=== PATIENT | male | born 1970 | race Caucasian/White ===

== ENCOUNTER → 2024-02-24 | Outpatient (CLI) | payer MEDICARE, OTHER, SELFPAY ==
--- NOTE | 2024-02-24 13:42 | DI.ECHO.S_ITS ---
[facility] : : [address] : : [place] : : [id number] : : Phone: [phone] Echocardiogram Report + + :Name: OG DUMONT Study Date: 02/24/2024 Height: 75 in : :Hospital ReadingLocation: Weight: 260 lb : : Gender: Male BSA: 2.5 m2 : :: 1970 Age: 53 yrs BP: 129/97 mmHg: :Reason For Study: PALPITATION : :Ordering Physician: RAMAN, : :POLLY Dumont Performed By: Karen Moore : :Referring: POLLY ALVAREZ : + + Interpretation Summary The ejection fraction is estimated to be 60-65%. Diastolic parameters suggest probable normal left ventricular diastolic function and normal filling pressures. The right ventricle is normal in size and function. No significant valvular abnormalities. Pulmonary artery pressures cannot be estimated because of the lack of a measurable TR jet velocity but the IVC suggests a CVP of around 3 mmHg. The ascending aorta is moderately enlarged, 4.7 cm. Procedure: A two-dimensional transthoracic echocardiogram with color flow and Doppler was performed. The study quality was technically adequate. There is no prior echocardiogram noted for this patient. The patient was in sinus rhythm with heart rates between 58-67 bpm during the exam. Left Ventricle: The left ventricle is normal in size and wall thickness. The ejection fraction is estimated to be 60-65%. Diastolic parameters suggest probable normal left ventricular diastolic function and normal filling pressures. Right Ventricle: The right ventricle is normal in size and function. Atria: The left atrial size is normal. Right atrial size is normal. There is no Doppler evidence for an interatrial shunt. Mitral Valve: The mitral valve is normal in structure and function. There is no mitral regurgitation noted. Aortic Valve: The aortic valve is trileaflet. The aortic valve opens well. There is no aortic valve stenosis. No aortic regurgitation is present. Tricuspid Valve: The tricuspid valve is normal in structure and function. There is trace tricuspid regurgitation. Pulmonary artery pressures cannot be estimated because of the lack of a measurable TR jet velocity but the IVC suggests a CVP of around 3 mmHg. Pulmonic Valve: The pulmonic valve leaflets are thin and pliable; valve motion is normal. There is trace pulmonic regurgitation. Great Vessels: The aortic root is mildly dilated. The ascending aorta is moderately enlarged. The IVC is of normal diameter and collapses greater than 50% with a sniff. This suggests a low right atrial pressure of 3 mm Hg. Pericardium/ Pleura There is no pericardial effusion. There is no pleural effusion. MMode/2D Measurements & Calculations LVIDd: 5.3 cm LVOT diam: 2.1 cm LVIDs: 3.4 cm Ao root diam: 4.2 cm FS: 35.5 % asc Aorta Diam: 4.7 cm EPSS: 1.4 cm Ao Arch Diam (Prox Trans): 2.1 cm IVSd: 0.89 cm LVPWd: 1.0 cm LV barnes. diameter/BSA (cm/m^2): 2.2 LV sys. diameter/BSA (cm/m^2): 1.4 LA A2 area: 22.1 cm2 RA long axis: 5.8 cm LA A4 area: 13.7 cm2 RA area: 17.3 cm2 LA length (vol): 5.0 cm RA vol: 43.7 ml LA vol: 51.3 ml RA : 17.8 ml/m2 LA vol index: 20.9 ml/m2 IVC diam: 1.6 cm RVD1 (basal): 3.8 cm TAPSE: 2.3 cm Doppler Measurements & Calculations Ao V2 max: 127.4 cm/sec LVOT Max Eugenio: 97.1 cm/sec Ao V2 mean: 94.1 cm/sec LV V1 max P.8 mmHg Ao max P.5 mmHg LV V1 VTI: 23.7 cm Ao mean P.8 mmHg CRISTIN(I,D): 3.2 cm2 Ao V2 VTI: 26.9 cm CRISTIN(V,D): 2.8 cm2 sev ratio: 0.88 CRISTIN indexed to BSA (cm^2/m^2): 1.3 MV E max eugenio: 61.3 cm/sec PA V2 max: 101.0 cm/sec MV A max eugenio: 55.9 cm/sec PA V2 mean: 69.3 cm/sec MV E/A: 1.1 PA mean P.1 mmHg Med Peak E' Eugenio: 6.1 cm/sec PA pr(Accel): 27.6 mmHg E/E' med: 10.0 Lat Peak E' Eugenio: 7.1 cm/sec E/E' lat: 8.6 E/e' average: 9.3 MV dec time: 0.22 sec SV(LVOT): 85.7 ml Reading Physician:05:[id number] PM
--- NOTE | 2024-02-24 19:45 | DI.NM.S_ITS ---
DATE OF SERVICE: 02/24/2024 PROCEDURE: Exercise stress test. INDICATIONS: Palpitations. CARDIAC STRESS: The patient underwent exercise stress test under the supervision of an attending staff. He walked on [place] protocol for 8 minutes and 52 seconds, achieved maximum heart rate of 140 which was 83% of target heart rate. Normal blood pressure response. Resting blood pressure 124/96 and peak blood pressure 154/96. LIZZIE positive 12%. Achieved 10.1 METs of workload. Baseline rhythm was sinus. During stress, no convincing ischemic changes seen. No significant arrhythmias seen. No chest pain or anginal symptoms. However, in the immediate recovery, patient developed dizziness which got resolved in 2 minutes. The patient also had cough and burning in legs. CONCLUSION: Mildly submaximal exercise stress test (83% of target heart rate), negative for inducible ischemia. Normal blood pressure response. Achieved 10.1 METs of workload. No ischemic EKG changes. No significant arrhythmias. No anginal symptoms. Had dizziness in the immediate recovery. There was cough and burning in legs as well. Overall, low- risk exercise stress test. Also consider workup to rule out PAD. Faby Correia - MOSES/alannah/AY doc#: [id number]/job#: [id number] dd: 02/24/2024 16:49:00 dt: 02/24/2024 19:08:00 DICTATING /COPIES TO: John Orellana MD COPIES MNE: HENRY;
== END ==
PROVIDERS: Referring Provider Internal Medicine Cardiovascular Disease; Visit Provider Internal Medicine Cardiovascular Disease
DX: I77.810 Thoracic aortic ectasia (principal); I77.89 Other specified disorders of arteries and arterioles; R00.2 Palpitations
CPT/HCPCS: 93017; 93306